=== PATIENT | male | born 1990 | race Asian ===

== ENCOUNTER 2017-03-01 13:42 | Emergency (ER) | payer MEDICAID ==
[2017-03-01 13:55] VITALS: BP 120/73
--- NOTE | 2017-03-01 14:27 | XRAY Preliminary Report ---
Exam: XR Finger(s) RT IMPRESSION: Normal digit radiography. [facility] SITE ID: [id number]
--- NOTE | 2017-03-01 14:30 | XRAY Report ---
EXAM: RIGHT THIRD DIGIT RADIOGRAPHY EXAM DATE: 03/01/2017 02:12 PM. CLINICAL HISTORY: Trauma, pain. COMPARISON: None. TECHNIQUE: 3 views. FINDINGS: Bones: Normal. No fracture or bone lesion. Joints: Normal. No subluxations. Soft Tissues: Unremarkable. IMPRESSION: Normal digit radiography. [facility] Referring Provider Line: [phone] SITE ID: [id number]
--- NOTE | 2017-03-01 15:35 | ED Physician Documentation ---
History of Present Illness - Stated complaint Stated Complaint: FINGER INJURY - Chief complaint Chief Complaint: Ext Problem - Additonal information Additional information: pt injured his finger a month ago - hit it now has firm swelling under skin over prox phalange dorsal aspect 3rd finger and slightly limited full flexion Review of Systems Musculoskeletal: reports: Extremity pain PD PAST MEDICAL HISTORY - Past Medical History Past Medical History: No - Past Surgical History Past Surgical History: No - Present Medications Home Medications: Ambulatory Orders Medication Instructions Recorded Confirmed No Known Home Medications [No 03/01/17 03/01/17 Known Home Medications] - Allergies Allergies/Adverse Reactions: Allergies Allergy/AdvReac Type Severity Reaction Status Date / Time No Known Drug Allergies Allergy Verified 03/01/17 13:51 - Social History Does the pt smoke?: Yes Smoking Status: Current every day smoker PD ED PE NORMAL - Vitals Vital signs reviewed: Yes - Extremities Extremities: Other (R hand thrid finger dorsal aspect prox pahalnge with hard swelling that is slightly mobile and slightly limited PIP fllexion, MSV intact) Results - Vitals Vitals: Vital Signs - 24 hr 03/01/17 13:51 Temperature 36.6 C Heart Rate 60 Respiratory 16 Rate Blood Pressure 120/73 O2 Saturation 99 Oxygen O2 Source Room air - Rads (name of study) hand Radiology: See rad report (neg) Departure - Departure Disposition: 01 Home, Self Care Clinical Impression: Scar tissue Condition: Good Follow-Up: [facility] [Provider Group] Comments: The xray shows the bones in your finger are fine. The exam indicates the tendons are intact as well It feels like there is some hard scar tissue from the prior injury Tis should gradually improve with range of motion and time If it is still giving you trouble in about 3-6 months, you could see orthopedics for further evaluation Discharge Date/Time: 03/01/17 15:43
== END 2017-03-01 15:43 | disposition home or self-care (01) ==
LOC: ED 13:42
DX: L90.5 Scar conditions and fibrosis of skin (principal); S69.91XS Unspecified injury of right wrist, hand and finger(s), sequela; W22.8XXS Striking against or struck by other objects, sequela; F17.200 Nicotine dependence, unspecified, uncomplicated
CPT/HCPCS: 73140; 99282; 99283

== ENCOUNTER 2017-03-26 08:00 | Outpatient (CLI) | payer MEDICAID ==
[2017-03-26 13:46] LABS: BASOPHILS % (AUTO) 0.5 %; EOSINOPHILS # (AUTO) 0.1 10^3/uL (0.0-0.7); EOSINOPHILS % (AUTO) 2.5 %; HCT - HEMATOCRIT 46.4 % (42.0-52.0); HGB - HEMOGLOBIN 15.5 g/dL (14.0-18.0); LYMPHOCYTES # (AUTO) 2.6 10^3/uL (1.5-3.5); LYMPHOCYTES % (AUTO) 51.4 %; MEAN CORPUSCULAR HEMOGLOBIN 31.2 pg (27.0-31.0); MEAN CORPUSCULAR HGB CONC 33.3 g/dL (32.0-36.0); MEAN CORPUSCULAR VOLUME 93.5 fL (80.0-94.0); MEAN PLATELET VOLUME 9.2 fL (7.4-11.4); MONOCYTES # (AUTO) 0.5 10^3/uL (0.0-1.0); MONOCYTES % (AUTO) 9.5 %; NEUTROPHILS # (AUTO) 1.9 10^3/uL (1.5-6.6); NEUTROPHILS % (AUTO) 36.1 %; NUCLEATED RED BLOOD CELLS AUTO 0.1 /100WBC; RED BLOOD COUNT 4.97 10^6/uL (4.70-6.10); RED CELL DISTRIBUTION WIDTH 12.3 % (12.0-15.0); UNCORRECTED WHITE BLOOD COUNT 5.1 x10^3/uL; WHITE BLOOD COUNT 5.1 x10^3/uL (4.8-10.8)
[2017-03-26 14:20] LABS: ALBUMIN/GLOBULIN RATIO 1.6 (1.0-2.2); BILIRUBIN,TOTAL 0.9 mg/dL (0.2-1.0); BUN - BLOOD UREA NITROGEN 11 mg/dL (6-20); CALCIUM 9.1 mg/dL (8.5-10.3); CARBON DIOXIDE - CO2 24 mmol/L (21-32); CHLORIDE 106 mmol/L (101-111); CHOL/HDL RATIO 3.1 (<5.0); CHOLESTEROL 185 mg/dL; CREATININE 0.9 mg/dL (0.6-1.2); GFR - MDRD 104 (>89); GLUCOSE 97 mg/dL (70-100); HDL CHOLESTEROL 60 mg/dL; LDL/HDL RATIO 1.8 (<3.6); POTASSIUM 3.9 mmol/L (3.5-5.0); SODIUM 137 mmol/L (135-145); TOTAL PROTEIN 7.7 g/dL (6.7-8.2); TRIGLYCERIDES 74 mg/dL; VLDL CHOLESTEROL 15 mg/dL
== END 2017-03-26 08:01 | disposition home or self-care (01) ==
LOC: LAB.N 08:00
PROVIDERS: ATTEND Nurse Practitioner Gerontology
DX: Z13.9 Encounter for screening, unspecified (principal)
CPT/HCPCS: 36415; 80053; 80061; 84443; 85025

== ENCOUNTER 2017-07-03 11:22 | Emergency (ER) | payer MEDICAID ==
[2017-07-03 11:30] VITALS: BP 111/70
[2017-07-03] MEDS ORDERED: PROPARACAINE 0.5% OPHTH DROPS 15 ML EACHEYE STA (12:17)
--- NOTE | 2017-07-03 12:24 | ED Physician Documentation ---
PD HPI OPHTHO - Stated complaint Stated Complaint: POSSIBLE OBJECT IN LT EYE - Chief complaint Chief Complaint: Heent - History obtained from History obtained from: Patient - History of Present Illness Timing - onset: How many days ago (2) Timing - duration: Days (2) Timing - details: Gradual onset (had feeling of FB in eye 2 days ago and rinsed eye, and was feeling better after. then with irritation the pain under upper lid.) Location: Left Quality / character: Aching Associated symptoms: FB sensation. No: Redness, Swelling, Discharge, Photophobia, Decreased vision Contributing factors: FB (felt like it initially), Wears contacts Similar symptoms before: Has not had sx before Recently seen: Not recently seen Review of Systems Constitutional: denies: Fever, Chills Eyes: denies: Loss of vision, Photophobia, Discharge Nose: denies: Rhinorrhea / runny nose, Congestion Throat: denies: Sore throat PD PAST MEDICAL HISTORY - Past Medical History Past Medical History: No - Past Surgical History Past Surgical History: No - Present Medications Home Medications: Ambulatory Orders Medication Instructions Recorded Confirmed Sulfacetamide 10% Ophth Drops 2 drops LEFTEYE Q3H #1 bottle 07/03/17 [Sulfamide 10% Ophth Drops] - Allergies Allergies/Adverse Reactions: Allergies Allergy/AdvReac Type Severity Reaction Status Date / Time No Known Drug Allergies Allergy Verified 07/03/17 11:30 - Social History Does the pt smoke?: Yes Smoking Status: Current every day smoker Does the pt drink ETOH?: No Does the pt have substance abuse?: No - Immunizations Immunizations are current?: No Immunizations: TDAP >10years/unknown - POLST Patient has POLST: No PD ED PE NORMAL - Vitals Vital signs reviewed: Yes - General General: Alert and oriented X 3, No acute distress, Well developed/nourished - HEENT HEENT: PERRL, EOMI PD ED PE EXPANDED - Eyes Eyes: Eyelid erythema (there is focal redness underside medial upper lid on left eye, without FB. No discharge. Lid margin without swelling. ). No: Eyelid swelling, Corneal ulcer, Fluorescein uptake Results - Vitals Vitals: Vital Signs - 24 hr 07/03/17 11:27 Temperature 36.8 C Heart Rate 84 Respiratory 16 Rate Blood Pressure 111/70 O2 Saturation 100 Oxygen O2 Source Room air PD MEDICAL DECISION MAKING - ED course Complexity details: considered differential (does not look like true pink eye. Focal area of redness and swelling underside medial upper lid. No FB seen. Stye like without focal bump.), d/w patient Departure - Departure Disposition: 01 Home, Self Care Clinical Impression: Conjunctivitis Qualifiers: Conjunctivitis type: acute Acute conjunctivitis type: bacterial Laterality: left Qualified Code(s): H10.32 - Unspecified acute conjunctivitis, left eye Condition: Stable Record reviewed to determine appropriate education?: Yes Instructions: ED Conjunctivitis Bacterial Prescriptions: Sulfacetamide 10% Ophth Drops [Sulfamide 10% Ophth Drops] 2 drops LEFTEYE Q3H # 1 bottle Comments: There is local redness and swelling on the underside of the eyelid in that area. It looks like a local area of infection. This could have started from a scratch or foreign body that had been and there and created an infection. I do not see anything foreign in the eye at this time. Use the sulfa eyedrops every 2-3 hours while awake for the next few days. This should decrease and improve over the next couple of days. Recheck if it is worsening. Discharge Date/Time: 07/03/17 12:47
== END 2017-07-03 12:47 | disposition home or self-care (01) ==
LOC: ED 11:22
DX: H10.32 Unspecified acute conjunctivitis, left eye (principal); B96.89 Other specified bacterial agents as the cause of diseases classified elsewhere; F17.200 Nicotine dependence, unspecified, uncomplicated
CPT/HCPCS: 99283; J3490